=== PATIENT | female | born 1960 | race Caucasian/White ===

== ENCOUNTER 2021-11-04 15:27 | Emergency (ER) | payer MEDICAID ==
[~2021-11-04] VITALS: Ht 165.1 cm; Wt 67.0 kg
[~2021-11-04 15:27] MED LIST: ALBU18HF2 INH; ALBU8.5H17 IH; ALBU8HFA PO; BUDE10.2 INH; PRED50TA PO
[2021-11-04 15:47] VITALS: BP 108/67
[2021-11-04] MEDS ORDERED: bacitracin 15gm ointment TP ONE (17:35)
[2021-11-04] MEDS ORDERED: SULF1TAB49 PO (17:35)
== END 2021-11-04 17:54 | disposition home or self-care (01) ==
LOC: ER 15:27
DX: S81.831A Puncture wound without foreign body, right lower leg, initial encounter (principal); L03.115 Cellulitis of right lower limb; J43.9 Emphysema, unspecified; M06.9 Rheumatoid arthritis, unspecified; F12.90 Cannabis use, unspecified, uncomplicated; Z56.0 Unemployment, unspecified; Z72.89 Other problems related to lifestyle; Z79.2 Long term (current) use of antibiotics; Z79.899 Other long term (current) drug therapy; X58.XXXA Exposure to other specified factors, initial encounter; Y93.89 Activity, other specified; Y92.89 Other specified places as the place of occurrence of the external cause; Y99.8 Other external cause status
CPT/HCPCS: 99284; A6222; A6258; A6449

== ENCOUNTER 2022-10-24 14:49 | Emergency (ER) | payer MEDICAID ==
[~2022-10-24] VITALS: Ht 162.6 cm; Wt 61.4 kg
[2022-10-24 15:56] VITALS: BP 129/70; PULSE 75; RESP 18; TEMP 97.8; O2SAT 99
[2022-10-24] MEDS ORDERED: PRED20TA PO (17:35)
[2022-10-24] MEDS ORDERED: ACET650T58 PO (17:38)
== END 2022-10-24 17:52 | disposition home or self-care (01) ==
LOC: ER 14:49
DX: M25.562 Pain in left knee (principal); J44.9 Chronic obstructive pulmonary disease, unspecified; F12.90 Cannabis use, unspecified, uncomplicated; Z79.1 Long term (current) use of non-steroidal anti-inflammatories (NSAID); Z79.899 Other long term (current) drug therapy
CPT/HCPCS: 73564; 99283; J7030; A6449

== ENCOUNTER 2024-04-08 12:45 | Emergency (ER) | payer MEDICAID ==
[~2024-04-08] VITALS: Ht 165.1 cm; Wt 51.5 kg
[2024-04-08 12:51] VITALS: BP 115/58; PULSE 85; RESP 16; TEMP 97.3; O2SAT 98
== END 2024-04-08 18:15 | disposition left against medical advice (07) ==
LOC: ER 12:46
DX: M79.674 Pain in right toe(s) (principal); Z53.21 Procedure and treatment not carried out due to patient leaving prior to being seen by health care provider

== ENCOUNTER 2024-04-17 13:46 | Emergency (ER) | payer MEDICAID ==
[~2024-04-17] VITALS: Ht 165.1 cm; Wt 55.2 kg
[2024-04-17 13:48] VITALS: BP 114/66; PULSE 83; RESP 16; O2SAT 99
[2024-04-17] MEDS: sulfamethoxazole/trimethoprim DS (800/160mg) tablet PO STA (16:59)
[2024-04-17] MEDS ORDERED: SULF1TAB49 PO (17:02)
[2024-04-17 17:23] VITALS: TEMP 97
== END 2024-04-17 17:27 | disposition home or self-care (01) ==
LOC: ER 13:46
DX: M25.562 Pain in left knee (principal); F12.90 Cannabis use, unspecified, uncomplicated; Z56.0 Unemployment, unspecified; Z79.52 Long term (current) use of systemic steroids
CPT/HCPCS: 73564; 99283

== ENCOUNTER 2024-09-03 21:03 | Emergency (ER) | payer MEDICAID ==
[~2024-09-03] VITALS: Ht 162.6 cm; Wt 50.5 kg
[2024-09-03 21:45] VITALS: BP 150/76; PULSE 90; RESP 15; TEMP 97; O2SAT 96
== END 2024-09-03 23:39 | disposition left against medical advice (07) ==
LOC: ER 21:04
DX: J02.9 Acute pharyngitis, unspecified (principal); Z53.21 Procedure and treatment not carried out due to patient leaving prior to being seen by health care provider

== ENCOUNTER 2024-09-13 10:50 | Emergency (ER) | payer MEDICAID ==
[~2024-09-13] VITALS: Ht 162.6 cm; Wt 61.5 kg
[2024-09-13 11:02] VITALS: BP 128/65; PULSE 91; RESP 18; O2SAT 95
[2024-09-13] MEDS ORDERED: SULF1TAB45 PO (11:28)
[2024-09-13] MEDS ORDERED: CEPH-585 PO (11:28)
--- NOTE | 2024-09-13 11:28 | Physician Documentation ---
History of Present Illness ~ Chief Complaint: Abscess Stated Complaint: SPIDER BITE Time Seen by MD: 11:12 Primary Medical Doctor: wang [facility] 64-year-old female presents to the ED with a complaint of left leg pain secondary to insect bite to three days ago she states she felt some insect bite her left anterior lower extremity and has developed increased pain and swelling with drainage. Denies any neurological symptoms denies any numbness tingling or fevers Tetanus Within 5 Years: Yes Medication Reconciliation Allergies: Coded Allergies: No Known Allergies (Unverified , 09/13/24) Scheduled Albuterol Sulfate (Ventolin Hfa), 2 PUFFS INH Q4HPRN Budesonide/Formoterol Fumarate (Symbicort 160-4.5 Mcg Inhaler), 2 PUFFS INH Q12H Cephalexin*Monohydrate* (Keflex*), 1 CAP PO QID Prednisone (Prednisone), 1 TAB PO DAILY Sulfamethoxazole/Trimethoprim (Septra Ds Tab), 1 TAB PO Q12H Scheduled PRN Albuterol Sulfate (Proair Hfa), 2 PUFFS IH Q4H PRN for SOB or wheezing albuterol inhaler (Pro-Air Inhaler), 2-4 PUFFS PO Q4H PRN for SOB or wheezing Past Medical History Past Medical History: Bronchitis, COPD, Emphysema, Rheumatoid Arthritis Past Surgical History: no surgical history Patient History: FH: cancer FAMILY/OTHER Alcohol Use: Sober Drug Use: marijuana Lives with: Family Lives In: Home Occupation: unemployed Review of Systems All Other Systems at this time: Reviewed and Negative ROS As stated above in the HPI, otherwise all systems are reviewed and negative. Physical Exam Vital Signs: Temperature: 97.8, Source: Temporal, Heart Rate: 91, Respiratory Rate: 18, BP: 128/65, Pulse Oximetry: 95, Weight: 61.500 Physical Exam General: Alert, no apparent distress. Extremities: Normal range of motion, no deformity. Left lower extremity purple discoloration with a central drainage area with minor erythema in the surrounding tissue, nonfluc Neurologic: Oriented x4. Psychiatric: Normal mood and affect. Skin: Normal color, warm and dry. No edema, no ecchymosis. Progress Results/Orders Results/Orders Vital Signs 09/13/24 09/13/24 11:02 11:33 Temp 97.8 97.8 Pulse 91 Resp 18 B/P (MAP) 128/65 Pulse Ox 95 Medical Decision Making Findings treating For subcutaneous infection secondary to insect bite Differential Dx:Considerations: Include: Abscess, Bacteremia, Cellulitis, Erysipelas, Felon, Gas gangrene, Hidrademitis suppurativa, Impetigo, Lymphangitis, Osteromyelitis, Paronychia, Septicemia, Other Departure Disposition: HOME / SELF CARE / HOMELESS Impression: Primary Impression: Cellulitis Additional Impression: Abscess Condition: Stable Discharge Instructions: Abscess, Care After Referrals: NO PRIMARY CARE PROVIDER (PCP) Prescriptions Cephalexin*Monohydrate* (Keflex*) 500 Mg Capsule 1 CAP PO QID, #40 CAP Prov: JAMAL BLACK DIRECTOR OF ANNUAL GIVING 09/13/24 Sulfamethoxazole/Trimethoprim (Septra Ds Tab) 800 Mg/160 Mg Tablet 1 TAB PO Q12H for 10 Days, #20 TAB Prov: JAMAL BLACK DIRECTOR OF ANNUAL GIVING 09/13/24 Education Educated: Patient Educated regarding: diagnosis Signature Scribe Signature: t Attestation: Scribed for Jamal Black Hand Spring Repairer by Jamal Black - PHILLIP . 09/13/24 17:57 JAMAL BLACK DIRECTOR OF ANNUAL GIVING Sep 13, 2024 11:28
[2024-09-13 11:33] VITALS: TEMP 97.8
== END 2024-09-13 11:35 | disposition home or self-care (01) ==
LOC: ER 10:51
DX: S80.862A Insect bite (nonvenomous), left lower leg, initial encounter (principal); L03.116 Cellulitis of left lower limb; L02.416 Cutaneous abscess of left lower limb; F12.90 Cannabis use, unspecified, uncomplicated; J44.9 Chronic obstructive pulmonary disease, unspecified; Z79.899 Other long term (current) drug therapy; Z56.0 Unemployment, unspecified; W57.XXXA Bitten or stung by nonvenomous insect and other nonvenomous arthropods, initial encounter; Y93.89 Activity, other specified; Y92.89 Other specified places as the place of occurrence of the external cause; Y99.8 Other external cause status
CPT/HCPCS: 99283

== ENCOUNTER 2025-02-03 16:45 | Emergency (ER) | payer MEDICAID ==
[~2025-02-03] VITALS: Ht 162.6 cm; Wt 62.7 kg
[~2025-02-03 16:45] MED LIST changes: +CEPH-585 PO
[2025-02-03 16:50] VITALS: BP 129/54; PULSE 90; RESP 16; TEMP 97.8; O2SAT 98
--- NOTE | 2025-02-03 17:04 | Physician Documentation ---
History of Present Illness ~ General Chief Complaint: Multiple Medical Complaints Stated Complaint: BODY ACHES/ NOSE BLEED Primary Medical Doctor: wang History of Present Illness Initial Comments Patient is a 65-year-old female that presents to the emergency department for complaints of flu-like symptoms times several days. Patient has cough congestion sinus pressure possible fevers chills reports pain under her axilla bilaterally through her clavicles. Patient does report a history of rheumatoid arthritis unsure if this is related to a flare of that. Other symptoms reported at this time. Medication Reconciliation Allergies: Coded Allergies: No Known Allergies (Unverified , 09/13/24) Scheduled Albuterol Sulfate (Ventolin Hfa), 2 PUFFS INH Q4HPRN Budesonide/Formoterol Fumarate (Symbicort 160-4.5 Mcg Inhaler), 2 PUFFS INH Q12H Cephalexin*Monohydrate* (Keflex*), 1 CAP PO QID Prednisone (Prednisone), 1 TAB PO DAILY Scheduled PRN Albuterol Sulfate (Proair Hfa), 2 PUFFS IH Q4H PRN for SOB or wheezing albuterol inhaler (Pro-Air Inhaler), 2-4 PUFFS PO Q4H PRN for SOB or wheezing Past Medical History Past Medical History: Bronchitis, COPD, Emphysema, Rheumatoid Arthritis Past Surgical History: no surgical history Patient History: FH: cancer FAMILY/OTHER Alcohol Use: Sober Drug Use: marijuana Lives with: Family Lives In: Home Occupation: unemployed Physical Exam Physical Exam Vital Signs: Temperature: 97.8, Source: Oral, Heart Rate: 90, Respiratory Rate: 16, BP: 129/54, Pulse Oximetry: 98, Weight: 62.730 Oxygen Flow Rate: 0 Progress Results/Orders Results/Orders Vital Signs 02/03/25 16:50 Temp 97.8 Pulse 90 Resp 16 B/P (MAP) 129/54 Pulse Ox 98 O2 Flow Rate 0 Departure Referrals: NO PRIMARY CARE PROVIDER (PCP) MENDEZ CEDEÑO Feb 03, 2025 17:04
--- NOTE | 2025-02-03 17:57 | ELECTROCARDIOGRAPH REPORT ---
[facility] [place] Test Date: 2025-02-03 Test Time: 17:56:13 Pat Name: LUIS MANUEL UNGER Department: [facility] Patient ID: [id number] Room: Gender: F [employer]: : [id number] Requested By: MENDEZ CEDEÑO Order Number: [id number] Reading MD: Dr. KELLY Romero Measurements Intervals [place] Rate: 85 P: 64 CA: 157 QRS: 46 QRSD: 106 T: 62 QT: 381 QTc: 453 Interpretive Statements Sinus rhythm Baseline wander in lead(s) V3 Electronically Signed On 02-05-2025 13:08:[address] KELLY Romero Please click the below link to view image of tracing.
--- NOTE | 2025-02-03 18:08 | RADIOLOGY REPORT ---
CHEST RADIOGRAPH Indication: SOB Technique: Single frontal view of the chest was obtained COMPARISON: CHEST,SINGLE VIEW on DOS: 01/14/18 FINDINGS: Lines and Tubes: None Lungs: Clear Pleura: No effusion. No pneumothorax. Cardiomediastinal contours: Unremarkable Bones: Unremarkable IMPRESSION: No acute disease.
[2025-02-03 18:36] LABS: MEAN PLATELET VOLUME 7.7 FL (7.4-10.4); RED CELL DISTRIBUTION WIDTH 14.3 % (11.5-14.5)
[2025-02-03 18:58] LABS: CREATININE 1.05 MG/DL (0.40-0.90); TOTAL CARBON DIOXIDE 26.9 MMOL/L (24-32); eCRCL 47 ML/MIN; eGFR 53 ML/MIN
[2025-02-03 19:06] LABS: PRO BRAIN NATRIURETIC PEPTIDE 121 PG/ML (0-125)
== END 2025-02-03 21:32 | disposition left against medical advice (07) ==
LOC: ER 16:46
DX: R05.9 Cough, unspecified (principal); R07.89 Other chest pain; R06.02 Shortness of breath; J43.9 Emphysema, unspecified; M06.9 Rheumatoid arthritis, unspecified; F12.90 Cannabis use, unspecified, uncomplicated
CPT/HCPCS: 36415; 71045; 80053; 83880; 84484; 85025; 93005; 99285